=== PATIENT | female | born 1995 | race Caucasian/White ===

== ENCOUNTER 2016-09-24 11:27 | Emergency (ER) | payer SELFPAY ==
[2016-09-24 11:31] VITALS: BP 113/61; PULSE 85; RESP 12; TEMP 98.7; O2SAT 97
--- NOTE | 2016-09-24 11:48 | PD ---
Physical Exam Time Seen by Provider: 11:44 Narrative 21 year old presents to ED for evaluation of RLQ abdominal pain, rates 9/10, sharp and stabbing and "feels like she is going to explode." Pain started abruptly yesterday. Does not recall last BM but says it was hard. Reports difficulty with urination. No fever or chills. No other symptoms to report. Data Data Last Documented VS Vital Signs Date Time Temp Pulse Resp B/P Pulse Ox O2 Delivery O2 Flow Rate FiO2 09/24/16 11:31 98.7 85 12 113/61 97 MDM Medical Record Reviewed: Yes Supervised Visit with KALYN: No Narrative Course 21 year old presents to ED for evaluation of RLQ pain. Appears well. VSS Scripts No Active Prescriptions or Reported Meds Condition: Stella Cano Sep 24, 2016 11:48
[2016-09-24] MEDS ORDERED: SODIUM CHLOR 0.9% 1000 ML INJ 1,000 ML IV SCH (11:54)
[2016-09-24] MEDS ORDERED: SODIUM CHLORIDE 0.9% FLUSH 10 ML FLUSH IV FLUSH PRN (12:00)
--- NOTE | 2016-09-24 12:01 | PD ---
HPI Chief Complaint: Abdominal Pain Time Seen by Provider: 11:56 Travel History International Travel<30 days: No Contact w/Intl Traveler<30days: No Traveled to known affect area: No History of Present Illness HPI 21-year-old female presents to the emergency department for evaluation of right lower quadrant abdominal pain for 2 days. Patient states that yesterday she had some generalized abdominal cramping that localized to the right lower quadrant last night. States that the pain is a stabbing pressure that is constant. Aggravated with movement, palpation and sitting. States that she has some nausea but no vomiting. She is unsure of when her last bowel movement was, states that she thinks she had one yesterday, states that it is sometimes hard and sometimes runny. Denies any fever, chills, body aches, dysuria, vaginal discharge. She is sexually active. Denies , last menstrual period 1 week ago. Denies any prior abdominal surgeries. No other complaints. PFSH Past Medical History ADHD: No Autoimmune Disease: No Depression: Yes Cancer: No Cardiovascular Problems: No Developmental Delay: No Diabetes: No Diminished Hearing: No Genitourinary: No Musculoskeletal: No Neurologic: No Psychiatric: Yes (MOOD DISORDER, NOS, PTSD) Respiratory: No Immunizations Current: Yes Migraines: Yes Seizures: No Thyroid Disease: No Ulcer: No ?: Unknown LMP: couple weeks ago : 0 Para: 0 Miscarriage: 0 : 0 Past Surgical History Other Surgery: No Social History Alcohol Use: No Tobacco Use: No Substance Use: No Allergies-Medications (Allergen,Severity, Reaction): Coded Allergies: No Known Allergies (Verified , 09/24/16) Reported Meds & Prescriptions Reported Meds & Active Scripts Active Naproxen 500 Mg Tab 500 Mg PO BID 5 Days Review of Systems Except as stated in HPI: all other systems reviewed are Neg Physical Exam Narrative GENERAL: Well-nourished and well-developed pleasant patient in no acute distress who is nontoxic appearing. SKIN: Warm and dry. HEAD: Normocephalic and atraumatic. EYES: No injection, drainage, or hyphema noted. PERRLA. EOMI. ENT: No nasal drainage noted. Oropharynx is clear. NECK: Supple and the trachea is midline. CARDIOVASCULAR: Regular rate and rhythm. RESPIRATORY: Breath sounds are equal bilaterally with no accessory muscle use, wheezing, rhonchi, or crackles. GASTROINTESTINAL: Right lower and mid abdominal tenderness to palpation. No rebound tenderness or guarding. Abdomen is soft and nondistended. GENITOURINARY: Normal external genitalia without lesions or erythema. Vaginal vault with scant amount of white discharge. Cervical os was closed without drainage. No cervical motion tenderness. Uterus nontender and nonenlarged. Bilateral adnexa nontender without masses. MUSCULOSKELETAL: No obvious deformities, swelling, cyanosis, or ecchymosis is present throughout the upper and lower extremities. Patient has full range of motion without any signs of neurovascular compromise. BACK: Negative CVA tenderness. NEUROLOGICAL: Awake, alert, and oriented. Normal speech and gait. Cranial nerves are grossly intact. Data Data Last Documented VS Vital Signs Date Time Temp Pulse Resp B/P Pulse Ox O2 Delivery O2 Flow Rate FiO2 09/24/16 12:10 16 09/24/16 12:09 99 Room Air 09/24/16 11:31 98.7 85 113/61 Orders Complete Blood Count With Diff (09/24/16 11:54) Comprehensive Metabolic Panel (09/24/16 11:54) Lipase (09/24/16 11:54) Urinalysis - C+S If Indicated (09/24/16 11:54) Ct Abd/Pel W Iv Contrast(Rout) (09/24/16 11:54) Iv Access Insert/Monitor (09/24/16 11:54) Ecg Monitoring (09/24/16 11:54) Oximetry (09/24/16 11:54) Sodium Chlor 0.9% 1000 Ml Inj (Ns 1000 M (09/24/16 11:54) Sodium Chloride 0.9% Flush (Ns Flush) (09/24/16 12:00) Gc And Chlamydia Pcr (09/24/16 11:54) Wet Prep Profile (09/24/16 11:54) Ed Urine Pregnancytest Poc (09/24/16 11:54) Iohexol 350 Inj (Omnipaque 350 Inj) (09/24/16 12:49) Ketorolac Inj (Toradol Inj) (09/24/16 13:30) Labs Laboratory Tests Test 09/24/16 09/24/16 12:13 12:19 White Blood Count 9.8 TH/MM3 Red Blood Count 3.85 MIL/MM3 Hemoglobin 11.1 GM/DL Hematocrit 32.9 % Mean Corpuscular Volume 85.3 FL Mean Corpuscular Hemoglobin 28.8 PG Mean Corpuscular Hemoglobin 33.8 % Concent Red Cell Distribution Width 13.8 % Platelet Count 226 TH/MM3 Mean Platelet Volume 9.7 FL Neutrophils (%) (Auto) 64.6 % Lymphocytes (%) (Auto) 25.5 % Monocytes (%) (Auto) 8.9 % Eosinophils (%) (Auto) 0.6 % Basophils (%) (Auto) 0.4 % Neutrophils # (Auto) 6.3 TH/MM3 Lymphocytes # (Auto) 2.5 TH/MM3 Monocytes # (Auto) 0.9 TH/MM3 Eosinophils # (Auto) 0.1 TH/MM3 Basophils # (Auto) 0.0 TH/MM3 CBC Comment DIFF FINAL Differential Comment Urine Color YELLOW Urine Turbidity HAZY Urine pH 6.0 Urine Specific [place] 1.026 Urine Protein TRACE mg/dL Urine Glucose (UA) NEG mg/dL Urine Ketones NEG mg/dL Urine Occult Blood NEG Urine Nitrite NEG Urine Bilirubin NEG Urine Urobilinogen 2.0 MG/DL Urine Leukocyte Esterase NEG Urine RBC 2 /hpf Urine WBC 3 /hpf Urine Squamous Epithelial 7 /hpf Cells Urine Mucus FEW /lpf Microscopic Urinalysis Comment CULT NOT INDICATED Sodium Level 140 MEQ/L Potassium Level 3.8 MEQ/L Chloride Level 106 MEQ/L Carbon Dioxide Level 25.8 MEQ/L Anion Gap 8 MEQ/L Blood Urea Nitrogen 7 MG/DL Creatinine 0.70 MG/DL Estimat Glomerular Filtration 107 ML/MIN Rate Random Glucose 100 MG/DL Calcium Level 8.4 MG/DL Total Bilirubin 0.3 MG/DL Aspartate Amino Transf 13 U/L (AST/SGOT) Alanine Aminotransferase 17 U/L (ALT/SGPT) Alkaline Phosphatase 76 U/L Total Protein 7.4 GM/DL Albumin 3.9 GM/DL Lipase 157 U/L Clue Cells (Wet Prep) NONE SEEN Vaginal Trichomonas (Wet Prep) NONE SEEN Vaginal Yeast (Wet Prep) NONE SEEN MDM Medical Decision Making Medical Screen Exam Complete: Yes Emergency Medical Condition: Yes Differential Diagnosis Constipation versus PID versus UTI versus appendicitis versus colitis versus ovarian cyst Narrative Course 21-year-old female presents to the emergency department for evaluation of right lower quadrant abdominal pain. Patient is afebrile, vital signs are stable. She does have some right lower quadrant and right mid abdominal tenderness to palpation but no peritoneal signs. Pelvic examination is essentially unremarkable. IV access is obtained, labs within drawn and sent. CT of the abdomen and pelvis has been ordered and is pending. Patient is given Toradol 30 mg IV. ED urine test is negative. CBC shows mild anemia with hemoglobin 11.1, hematocrit 32.9. CMP is unremarkable. Lipase is normal. Urinalysis shows few mucus but is otherwise unremarkable. Wet prep is negative. Gonorrhea and Chlamydia is pending. CT of the abdomen and pelvis shows 1.9 cm left ovarian cyst and ascites within the pelvis. The patient has remained stable and without complaint here in the ED. I discussed the findings of the CT with my attending physician Dr. Valente and with the radiologist Dr. Campos. We are in agreement that this is likely ascites secondary to a ruptured ovarian cyst. This does not represent infection and less likely malignancy. I discussed the results with the patient. She'll be discharged with NSAIDs and instructed to follow-up with an outpatient with a lawn sprinkler installer. Given resources for women's care now. Patient verbalizes understanding and agreement with treatment plan. I discussed the case with my attending physician Dr. Valente who is aware of the patients history, physical examination findings, and treatment plan. Diagnosis Primary Impression: Abdominal pain Qualified Code: R10.31 - Right lower quadrant abdominal pain Referrals: [facility] Patient Instructions: General Instructions Additional Instructions: Take medications as prescribed with food and a full glass of water. Follow-up with your Primary Care Physician or Commercial Loan Analyst. Return to the ED for any acute worsening of symptoms, Med/Other Pt SpecificInfo: Prescription(s) given Scripts Naproxen 500 Mg [id number] Mg PO BID 5 Days Ref 0 Prov:Ayesha Valente MD 09/24/16 Disposition: 01 DISCHARGE HOME Condition: Stable Yasmin Velasco Sep 24, 2016 12:01
[2016-09-24 12:09] VITALS: O2SAT 99
[2016-09-24 12:47] LABS: AUTOMATED NEUTROPHIL # 6.3 TH/MM3 (1.8-7.7); BASOPHIL % 0.4 % (0.0-2.0); EOSINOPHIL # 0.1 TH/MM3 (0-0.4); EOSINOPHIL % 0.6 % (0.0-4.0); HEMATOCRIT 32.9 % (35.0-46.0); HEMO FLAGS DIFF FINAL; LYMPH % 25.5 % (9.0-44.0); LYMPHOCYTE # 2.5 TH/MM3 (1.0-4.8); MEAN CELL VOLUME 85.3 FL (80.0-100.0); MEAN CORPUSCULAR HEMOGLOBIN 28.8 PG (27.0-34.0); MEAN CORPUSCULAR HGB CONC 33.8 % (32.0-36.0); MONO % 8.9 % (0.0-8.0); NEUT % 64.6 % (16.0-70.0); PLATELET COUNT 226 TH/MM3 (150-450); RED BLOOD COUNT 3.85 MIL/MM3 (4.00-5.30); RED CELL DISTRIBUTION WIDTH 13.8 % (11.6-17.2); WHITE BLOOD COUNT 9.8 TH/MM3 (4.0-11.0)
[2016-09-24] MEDS ORDERED: IOHEXOL 350 MG/ML 10 ML VIAL (for RAD DIAG) IV ONE (12:49)
[2016-09-24 12:53] LABS: BLOOD, URINE NEG (NEG); COMMENT (UR) CULT NOT INDICATED; CULTURE IF INDICATED CULT NOT INDICATED; GLUCOSE,URINE NEG (NEG); KETONE, URINE NEG (NEG); MUCUS URINE FEW /lpf (OCC); NITRITE,URINE NEG (NEG); SQUAMOUS EPITHELIAL CELL URINE 7 /hpf (0-5); URINE COLOR YELLOW (YELLW/STRAW)
[2016-09-24 13:08] LABS: ALT (GPT) 17 U/L (9-42); ANION GAP 8 MEQ/L (5-15); AST (GOT) 13 U/L (16-38); BICARBONATE 25.8 MEQ/L (21.0-32.0); BLOOD UREA NITROGEN 7 MG/DL (7-18); CHLORIDE 106 MEQ/L (98-107); GLOMERULAR FILTRATION RATE 107 ML/MIN (>89); POTASSIUM 3.8 MEQ/L (3.5-5.1); SODIUM (NA) 140 MEQ/L (136-145)
[2016-09-24 13:10] LABS: ALKALINE PHOSPHATASE 76 U/L (45-117); TOTAL BILIRUBIN ADULT 0.3 MG/DL (0.2-1.0)
--- NOTE | 2016-09-24 13:10 | RADRPT ---
EXAM DATE/TIME: 09/24/2016 12:25 [facility] COMPARISON: No previous studies available for comparison. INDICATIONS : Right lower quadrant pain. IV CONTRAST: 90 cc Omnipaque 350 (iohexol) IV ORAL CONTRAST: No oral contrast ingested. RADIATION DOSE: 9.96 CTDIvol (mGy) MEDICAL HISTORY : None SURGICAL HISTORY : None. ENCOUNTER: Initial ACUITY: 2 days PAIN SCALE: 7/10 LOCATION: Right lower quadrant TECHNIQUE: Volumetric scanning of the abdomen and pelvis was performed. Using automated exposure control and ad justment of the mA and/or kV according to patient size, radiation dose was kept as low as reasonably achievable to obtain optimal diagnostic quality images. FINDINGS: LOWER LUNGS: The visualized lower lungs are clear. LIVER: Homogeneous density without lesion. There is no dilation of the biliary tree. No calcified gallston es. SPLEEN: Normal size without lesion. PANCREAS: Within normal limits. KIDNEYS: Normal in size and shape. There is no mass, stone or hydronephrosis. ADRENAL GLANDS: Within normal limits. VASCULAR: There is no aortic aneurysm. BOWEL/MESENTERY: The stomach, small bowel, and colon demonstrate no acute abnormality. There is no free intraperitone al air or fluid. The appendix is not opacified and therefore is not well evaluated. The terminal ileu m is unremarkable. ABDOMINAL WALL: Within normal limits. RETROPERITONEUM: There is no lymphadenopathy. BLADDER: No wall thickening or mass. REPRODUCTIVE: There is a ascites within the pelvis. There is a 1.9 cm left ovarian cyst. The uterus is unremarkable . INGUINAL: There is no lymphadenopathy or hernia. MUSCULOSKELETAL: Within normal limits for patient age. CONCLUSION: 1. Ascites within the pelvis. 2. 1.9 cm left ovarian cyst. Lauro Campos MD on September 24, 2016 at 13:02 Board Certified Radiologist. This report was verified electronically.
[2016-09-24] MEDS ORDERED: KETOROLAC TROMETHAMINE 30 MG/ML (IVP) VIAL IV PUSH ONE (13:30)
[2016-09-24] MEDS ORDERED: NAPR500T PO (13:31)
[2016-09-24 16:03] LABS: CHLAMYDIA PCR NOT DETECTED (NOT DETECT); NEISSERIA PCR NOT DETECTED (NOT DETECT)
== END 2016-09-24 14:04 | disposition home or self-care (01) ==
LOC: NEPD 11:27
DX: R10.31 Right lower quadrant pain (principal); N83.202 Unspecified ovarian cyst, left side; R18.8 Other ascites
CPT/HCPCS: 74177; 80053; 81001; 83690; 84703; 85025; 87210; 87491; 87591; 96361; 96374; 99284; J1885; J7030; Q9967

== ENCOUNTER 2016-11-06 18:44 | Emergency (ER) | payer SELFPAY ==
[~2016-11-06] VITALS: Ht 172.7 cm; Wt 65.0 kg
[~2016-11-06 18:44] MED LIST: NAPR500T PO
[2016-11-06 19:58] VITALS: BP 116/82; PULSE 58; RESP 16; TEMP 98.7; O2SAT 100
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
== END 2016-11-06 22:50 | disposition home or self-care (01) ==
LOC: NEDAMB 18:44
DX: F43.25 Adjustment disorder with mixed disturbance of emotions and conduct (principal)
CPT/HCPCS: 99283

== ENCOUNTER 2017-01-19 16:16 | Emergency (ER) | payer OTHER, MEDICAID ==
[~2017-01-19] VITALS: Ht 157.5 cm; Wt 55.0 kg
[2017-01-19 16:32] VITALS: BP 116/69; PULSE 70; RESP 16; TEMP 98; O2SAT 100
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
[2017-01-19] MEDS ORDERED: ROBA500T PO (18:24)
[2017-01-19] MEDS ORDERED: IBUP800T23 PO (18:24)
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
== END 2017-01-19 18:53 | disposition home or self-care (01) ==
LOC: NEPD 16:16
DX: S09.90XA Unspecified injury of head, initial encounter (principal); Y03.0XXA Assault by being hit or run over by motor vehicle, initial encounter; Y93.01 Activity, walking, marching and hiking
CPT/HCPCS: 70450; 84703; 99284

== ENCOUNTER 2017-10-10 10:15 | Emergency (ER) | payer SELFPAY ==
[2017-10-10] VITALS (7 sets, daily range): BP systolic 78–131; BP diastolic 48–88; PULSE 48–89; RESP 15–20; TEMP 97.8; O2SAT 99–100
[~2017-10-10] VITALS: Ht 165.1 cm; Wt 67.0 kg
[~2017-10-10 10:15] MED LIST changes: +IBUP1TAB7 PO; -NAPR500T PO; +ROBA500T PO
[2017-10-10] MEDS ORDERED: SODIUM CHLOR 0.9% 1000 ML INJ 1,000 ML IV ONE (10:45)
--- NOTE | 2017-10-10 10:46 | PD ---
HPI Chief Complaint: Fall Time Seen by Provider: 10:42 Travel History International Travel<30 days: No Contact w/Intl Traveler<30days: No Traveled to known affect area: No History of Present Illness HPI 22-year-old female patient who states that she is 3 months , presents to the ER today brought in by EMS after she tripped and fell on a fence landing on her right elbow, complaining of severe elbow pain, states that it hurts so much she thinks she may have passed out. However, her boyfriend witnessed the incident, states that she did not lose consciousness, did not hit her head, had just landing on her elbow. He states that he helped her to the bench. She denies other injuries. She has not yet had follow-up for her . Modifying Factors: None Associated Signs & Symptoms: Trip and fall, right elbow injury Risk Factors: 3 months PFSH Past Medical History ADHD: No Autoimmune Disease: No Depression: Yes Cancer: No Cardiovascular Problems: No Developmental Delay: No Diabetes: No Diminished Hearing: No Gastrointestinal Disorders: No Genitourinary: No Musculoskeletal: No Neurologic: No Psychiatric: Yes (MOOD DISORDER, NOS, PTSD) Respiratory: No Immunizations Current: Yes Migraines: Yes Seizures: No Thyroid Disease: No Ulcer: No Tetanus Vaccination: < 5 Years Influenza Vaccination: Yes ?: LMP: 07/29/17 : 1 Para: 0 Miscarriage: 0 : 0 Past Surgical History Other Surgery: No Social History Alcohol Use: No Tobacco Use: No Substance Use: No Allergies-Medications (Allergen,Severity, Reaction): Coded Allergies: No Known Allergies (Verified Adverse Reaction, Unknown, 10/10/17) Reported Meds & Prescriptions Reported Meds & Active Scripts Active No Active Prescriptions or Reported Medications Review of Systems Except as stated in HPI: all other systems reviewed are Neg Physical Exam Narrative GENERAL: Well-developed young female patient currently in moderate distress. Awake and oriented 3. SKIN: Focused skin assessment warm/dry. HEAD: Atraumatic. Normocephalic. EYES: Pupils equal and round. No scleral icterus. No injection or drainage. ENT: No nasal bleeding or discharge. Mucous membranes pink and moist. NECK: Trachea midline. No JVD. CARDIOVASCULAR: Regular rate and rhythm. No murmur appreciated. RESPIRATORY: No accessory muscle use. Clear to auscultation. Breath sounds equal bilaterally. GASTROINTESTINAL: Abdomen soft, non-tender, nondistended. Hepatic and splenic margins not palpable. MUSCULOSKELETAL: No obvious deformities. No clubbing. No cyanosis. No edema. There is notable tenderness on palpation and deformity at the right elbow, unable to flex elbow secondary to pain. Neurovascularly intact. NEUROLOGICAL: Awake and alert. No obvious cranial nerve deficits. Motor grossly within normal limits. Normal speech. PSYCHIATRIC: Appropriate mood and affect; insight and judgment normal. Data Data Last Documented VS Vital Signs Date Time Temp Pulse Resp B/P (MAP) Pulse Ox O2 Delivery O2 Flow Rate FiO2 10/10/17 12:19 97.8 89 16 131/88 (102) 100 Room Air 10/10/17 11:40 2.00 Orders Orders Complete Blood Count With Diff (10/10/17 10:42) Basic Metabolic Panel (Bmp) (10/10/17 10:42) Beta Hcg (Quant/Titer) (10/10/17 10:42) Sodium Chlor 0.9% 1000 Ml Inj (Ns 1000 M (10/10/17 10:45) Elbow, Limited (Ap&Lat) (10/10/17 10:25) Propofol 200 Mg/20 Ml Inj (Diprivan 200 (10/10/17 11:15) Elbow, Limited (Ap&Lat) (10/10/17 11:41) Labs Laboratory Tests Test 10/10/17 10:40 White Blood Count 7.8 TH/MM3 Red Blood Count 4.19 MIL/MM3 Hemoglobin 11.6 GM/DL Hematocrit 35.2 % Mean Corpuscular Volume 84.0 FL Mean Corpuscular Hemoglobin 27.7 PG Mean Corpuscular Hemoglobin Concent 33.0 % Red Cell Distribution Width 15.8 % Platelet Count 310 TH/MM3 Mean Platelet Volume 9.5 FL Neutrophils (%) (Auto) 55.7 % Lymphocytes (%) (Auto) 33.0 % Monocytes (%) (Auto) 10.3 % Eosinophils (%) (Auto) 0.5 % Basophils (%) (Auto) 0.5 % Neutrophils # (Auto) 4.3 TH/MM3 Lymphocytes # (Auto) 2.6 TH/MM3 Monocytes # (Auto) 0.8 TH/MM3 Eosinophils # (Auto) 0.0 TH/MM3 Basophils # (Auto) 0.0 TH/MM3 CBC Comment DIFF FINAL Differential Comment Blood Urea Nitrogen 11 MG/DL Creatinine 0.97 MG/DL Random Glucose 128 MG/DL Calcium Level 8.6 MG/DL Sodium Level 139 MEQ/L Potassium Level 3.8 MEQ/L Chloride Level 107 MEQ/L Carbon Dioxide Level 15.6 MEQ/L Anion Gap 16 MEQ/L Estimat Glomerular Filtration Rate 72 ML/MIN Human Chorionic Gonadotropin, Quant 44462 MIU/ML MDM Medical Decision Making Medical Screen Exam Complete: Yes Emergency Medical Condition: Yes Medical Record Reviewed: Yes Differential Diagnosis Right elbow injury: Fractures versus dislocation versus contusion Narrative Course Right elbow x-ray shows posterior dislocation, and elbow was reduced under conscious sedation in the ER. Patient was observed until completely awake. X- ray follow-up shows a complete reduction. A transabdominal ultrasound shows IUP , not able to see heart tones at this time, early . At this point, patient has been told to follow-up with [facility]OUNT[facility] SUPPORT SPECIALIST regarding . She should return for any pain, spotting and new issues as needed. She needs to follow-up as well with orthopedics regarding the elbow. Elbow was splinted in the ER and put in a sling. Tylenol for pain. The plan was discussed with her and she states understanding. Procedures Procedure Narrative Right elbow reduction was done under conscious sedation. The right elbow was placed in a fLex position, and reduced with downward and anterior pressure. Reduction was successful as confirmed by x-ray, patient tolerated procedure well. Neurovascularly intact post reduction. Transabdominal ultrasound was done by me which shows IUP. I am unable to see heart tone at this time, fairly early , done as an ultrasound transabdominally. Diagnosis Primary Impression: Dislocation of right elbow Referrals: Rocco Espinoza MD Scripts No Active Prescriptions or Reported Meds Disposition: 01 DISCHARGE HOME Condition: Stable SoonDomingo orantes MD October 10, 2017 10:46
[2017-10-10 11:00] LABS: AUTOMATED NEUTROPHIL # 4.3 TH/MM3 (1.8-7.7); BASOPHIL % 0.5 % (0.0-2.0); EOSINOPHIL % 0.5 % (0.0-4.0); HEMATOCRIT 35.2 % (35.0-46.0); HEMOGLOBIN 11.6 GM/DL (11.6-15.3); LYMPHOCYTE # 2.6 TH/MM3 (1.0-4.8); MEAN CORPUSCULAR HEMOGLOBIN 27.7 PG (27.0-34.0); MEAN PLATELET VOLUME 9.5 FL (7.0-11.0); MONO % 10.3 % (0.0-8.0); MONOCYTE # 0.8 TH/MM3 (0-0.9); NEUT % 55.7 % (16.0-70.0); PLATELET COUNT 310 TH/MM3 (150-450); RED BLOOD COUNT 4.19 MIL/MM3 (4.00-5.30); RED CELL DISTRIBUTION WIDTH 15.8 % (11.6-17.2); WHITE BLOOD COUNT 7.8 TH/MM3 (4.0-11.0)
[2017-10-10] MEDS ORDERED: PROPOFOL 200 MG/20 ML AMP IV ONE (11:15)
[2017-10-10 11:19] LABS: BICARBONATE 15.6 MEQ/L (21.0-32.0); CALCIUM 8.6 MG/DL (8.5-10.1); CREATININE 0.97 MG/DL (0.50-1.00)
--- NOTE | 2017-10-10 11:21 | RADRPT ---
EXAM DATE/TIME: 10/10/2017 11:01 [facility] COMPARISON: No previous studies available for comparison. INDICATIONS : Fall. Right elbow pain. MEDICAL HISTORY : None. SURGICAL HISTORY : None. ENCOUNTER: Initial ACUITY: 1 day PAIN SCORE: 10/10 LOCATION: Right elbow FINDINGS: Dislocation posteriorly without obvious fracture on 2 views. CONCLUSION: Posterior dislocation. Complete series suggested when reduced. Andrea Hall MD FACR on October 10, 2017 at 11:18 Board Certified Radiologist. This report was verified electronically.
--- NOTE | 2017-10-10 11:49 | PD ---
Physical Exam Date Seen by Provider: October 10, 2017 Data Data Last Documented VS Vital Signs Date Time Temp Pulse Resp B/P (MAP) Pulse Ox O2 Delivery O2 Flow Rate FiO2 10/10/17 11:18 97.8 50 17 102/58 (73) 100 Room Air Orders Orders Complete Blood Count With Diff (10/10/17 10:42) Basic Metabolic Panel (Bmp) (10/10/17 10:42) Beta Hcg (Quant/Titer) (10/10/17 10:42) Sodium Chlor 0.9% 1000 Ml Inj (Ns 1000 M (10/10/17 10:45) Elbow, Limited (Ap&Lat) (10/10/17 10:25) Propofol 200 Mg/20 Ml Inj (Diprivan 200 (10/10/17 11:15) Elbow, Limited (Ap&Lat) (10/10/17 11:41) Labs Laboratory Tests Test 10/10/17 10:40 White Blood Count 7.8 TH/MM3 Red Blood Count 4.19 MIL/MM3 Hemoglobin 11.6 GM/DL Hematocrit 35.2 % Mean Corpuscular Volume 84.0 FL Mean Corpuscular Hemoglobin 27.7 PG Mean Corpuscular Hemoglobin Concent 33.0 % Red Cell Distribution Width 15.8 % Platelet Count 310 TH/MM3 Mean Platelet Volume 9.5 FL Neutrophils (%) (Auto) 55.7 % Lymphocytes (%) (Auto) 33.0 % Monocytes (%) (Auto) 10.3 % Eosinophils (%) (Auto) 0.5 % Basophils (%) (Auto) 0.5 % Neutrophils # (Auto) 4.3 TH/MM3 Lymphocytes # (Auto) 2.6 TH/MM3 Monocytes # (Auto) 0.8 TH/MM3 Eosinophils # (Auto) 0.0 TH/MM3 Basophils # (Auto) 0.0 TH/MM3 CBC Comment DIFF FINAL Differential Comment Blood Urea Nitrogen 11 MG/DL Creatinine 0.97 MG/DL Random Glucose 128 MG/DL Calcium Level 8.6 MG/DL Sodium Level 139 MEQ/L Potassium Level 3.8 MEQ/L Chloride Level 107 MEQ/L Carbon Dioxide Level 15.6 MEQ/L Anion Gap 16 MEQ/L Estimat Glomerular Filtration Rate 72 ML/MIN Human Chorionic Gonadotropin, Quant 51771 MIU/ML [facility] Medical Record Reviewed: Yes Supervised Visit with KALYN: No Narrative Course Patient is a 22-year-old female who was seen in the emergency room after she fell and subsequently had a posterior elbow dislocation. I was asked to help with conscious sedation. Patient was given a total of 100 mg of IV propofol, elbow was reduced by Dr. Bush. patient tolerated procedure well. Procedures Procedure Narrative After the risks and benefits were discussed the following procedure was performed: MODERATE SEDATION: The patient was placed on a compliance monitor and pulse oximetry. An ambu bag and suction was immediately available at bedside. The patient was monitored by the nurse. Oxygen saturation , heart rate and blood pressure were monitored. Procedural sedation was acheived using 100 mg of propofol. The patient was observed until awake and alert. Procedural Sedation time in attendance was 10 minutes. Diagnosis Primary Impression: Dislocation of right elbow Patient Instructions: Moderate Sedation (ED) Scripts No Active Prescriptions or Reported Meds Disposition: 01 DISCHARGE HOME Condition: Stable Joan Mena DO October 10, 2017 11:49
--- NOTE | 2017-10-10 12:25 | RADRPT ---
EXAM DATE/TIME: 10/10/2017 11:42 [facility] COMPARISON: No previous studies available for comparison. INDICATIONS : Postreduction study. Patient status post posterior elbow dislocation.. MEDICAL HISTORY : None. SURGICAL HISTORY : None. ENCOUNTER: Initial ACUITY: 1 day PAIN SCORE: 7/10 LOCATION: Right elbow FINDINGS: Limited AP and lateral views of the elbow were obtained and demonstrate reduction of previously noted posterior dislocation. The fine bony detail is obscured by overlying casting material. The radial he ad appears intact and there is no visualized fracture. CONCLUSION: Reduction of the posterior dislocation. Jose Walker MD on October 10, 2017 at 12:23 Board Certified Radiologist. This report was verified electronically.
--- NOTE | 2017-10-10 22:54 | EKG ---
Date Performed: 10/10/2017 Time Performed: 10:32:01 PTAGE: 22 years EKG: SINUS BRADYCARDIA WITH SINUS ARRHYTHMIA When compared to previous tracing, sinus rate is sl ower. BORDERLINE ECG PREVIOUS TRACING : 05/06/2012 19.38.20 DOCTOR: Erick Mathis Interpretating Date/Time 10/10/2017 17:58:55
== END 2017-10-10 12:50 | disposition home or self-care (01) ==
LOC: NEPC 10:15
DX: S53.124A Posterior dislocation of right ulnohumeral joint, initial encounter (principal); R00.1 Bradycardia, unspecified; I49.9 Cardiac arrhythmia, unspecified; O99.341 Other mental disorders complicating pregnancy, first trimester; F43.10 Post-traumatic stress disorder, unspecified; F32.9 Major depressive disorder, single episode, unspecified; W01.0XXA Fall on same level from slipping, tripping and stumbling without subsequent striking against object, initial encounter; Z34.91 Encounter for supervision of normal pregnancy, unspecified, first trimester
CPT/HCPCS: 24600; 73070; 80048; 84702; 85025; 93005; 96360; 99284; J7030